=== PATIENT | male | born 1995 | race Caucasian/White ===

== ENCOUNTER 2022-04-21 10:15 | Emergency (ER) | payer OTHER, SELFPAY ==
--- NOTE | ~2022-04-21 | CT_ITS ---
EXAMINATION: CT FACIAL BONES WITHOUT CONTRAST CLINICAL INFORMATION: Right orbital/nasal pain. COMPARISON: None TECHNIQUE: Contiguous axial CT images of the facial bones were obtained without contrast. Sagittal and coronal reformats were provided and reviewed. This CT examination was performed using dose optimization techniques as appropriate, variously including the following: *Automated exposure control *Adjustment of mA and/or kV according to patient size (this includes techniques or standardized protocols for targeted exams where dose is matched to indication/reason for exam; i.e. extremities or head) *Use of iterative reconstruction technique DLP: 319 mGy-cm FINDINGS: There is no acute maxillofacial fracture. The pterygoid plates are intact. The zygomatic arches are intact. The lamina papyracea are intact. The orbital rims are intact. The paranasal sinuses are well-aerated. No air-fluid levels are seen. There is no significant deviation of the nasal septum. The ostiomeatal complexes are clear. The lamina papyracea are intact. The ethmoid roofs are symmetric. The carotid canals are normally covered by bone. No maxillary periapical disease is seen. The mastoid air cells and visualized middle ear cavities are well-aerated. The orbits are normal. The TMJs are unremarkable. The imaged portions of the brain demonstrate no acute abnormality. CT/CT facial bones wo IV con IMPRESSION: No acute intracranial process or discrete facial bone fracture.
[2022-04-21 10:22] VITALS: BP 110/58; PULSE 94; RESP 20; TEMP 36.5; O2SAT 100; BMI 23.1
--- NOTE | 2022-04-21 11:02 | ED_ITS ---
HPI - General Adult General Chief complaint: General Medical Stated complaint: pain on side of nose Time Seen by Provider: 04/21/22 10:44 Source: patient Mode of arrival: ambulatory Limitations: no limitations History of Present Illness HPI narrative: Patient is a 27-year-old male who presents to the emergency department with referral from urgent care. States he needed to come to the emergency department to have a CT scan obtained of his face. On 04/10/2022 while at work at [employer], he states that a machine he was working on which Bean labels became jammed. He attempted to remove the labels, when a metal lurdes with a belt came off the machine and subsequently struck him to the right side of the face. He sustained a laceration from this. He presented to urgent care that day for evaluation, there is no initial imaging obtained. He states since then he has been having dried secretions to the inside of the right nare, he has been picking at this and removing the scab/drainage daily. Yesterday he had a brief episode of epistaxis from the right nares, which stopped with pressure. Over the past 2 days he has been having increasing pain over the right maxillary sinus and throughout the right orbit and tenderness upon palpation. Denies any fevers, chills, dizziness, headache, lightheadedness. Denies any loss of consciousness with initial injury. Related Data Previous Rx's Medication Instructions Recorded doxycycline hyclate 100 mg capsule 100 mg PO BID #14 caps 04/21/22 Allergies Allergy/AdvReac Type Severity Reaction Status Date / Time Penicillins [PENICILLINS] Allergy Unknown HIVES Unverified 12/10/19 16:18 Review of Systems Review of Systems: HEENT: As noted in HPI FOR[facility]LY [facility] Past Medical History Attestation statement: The following information was validated with the patient. Social History Social History Advance Directives: No Advance Directives Information Provided: No Physical Exam ED Vital Signs: Vital Signs - 24 hr 04/21/22 10:22 Temperature 97.7 F Pulse Rate 94 Respiratory Rate 20 Blood Pressure 110/58 L Pulse Oximetry 100 Oxygen Delivery Method Room Air BMI result Body Mass Index 23.1 Appearance: Alert.?Oriented to person, place and time. No acute distress.?Normal affect. Eyes: Pupils equal, round and reactive to light.? EOMI. No nystagmus. ENT: Pharynx normal.??Right maxillary sinus tenderness upon palpation. Mild tenderness upon palpation of the inferior right orbit, palpable step-offs or deformities. Dried secretions noted inside the right nares, no septal hematoma noted. Neck: Normal inspection.? Neck supple.?? CVS: Heart sounds normal. Normal heart rate and rhythm.? Pulses normal.?? Respiratory: No respiratory distress.? Lung sounds clear to auscultation bilaterally?? Abdomen: Soft and non-tender. Skin: Skin warm and dry.? Normal skin color.? ? Extremities: No lower extremity edema.? Neuro: Moves all extremities spontaneously. Sensation intact bilaterally. CN II- XII intact. No focal neuro deficits. Ambulates with normal steady gait. Course Reevaluation(s) Reevaluation #1: CT reveals no maxillofacial fracture. Paranasal sinuses are well aerated, no air-fluid levels are seen, no maxillary periapical disease is seen. Reviewed these findings with patient. At this time patient to be discharged, will provide prescription for doxycycline for treatment of clinical sinusitis at this time. Discussed worrisome signs and symptoms would warrant re-evaluation in the emergency department. All questions answered. Patient stable for discharge at this time. Time: 12:34 Medical Decision Making Medical Decision Making MDM Narrative: Patient is a 27-year-old male presents emergency department for evaluation of pain to the right side asked after injury 10 days ago, referred from urgent care being advised that he needed a CT scan. At the time of examination he is overall well-appearing. Vital signs are within normal limits. Examination not consistent with septal hematoma. Right maxillary sinus tenderness present. Injury was non penetrating to the eye, no pain to the eye, no vision changes, at this time not consistent with globe rupture, hyphema, retro-orbital hemorrhage. Will obtain CT of the facial bones in sinus. Differential Diagnosis Differential Diagnoses: The differential diagnosis associated with the presentation includes (As noted above) Independent Interpretation I performed an independent interpretation of an: CT Scan Radiology Impression Discussion of test interpretation with radiology: I have reviewed the radiologist's reading. Radiologist Impression: CT/CT facial bones wo IV con IMPRESSION: No acute intracranial process or discrete facial bone fracture. Prescription Management I considered prescription management with: Antibiotic Discharge Plan Discharge Clinical Impression: Acute maxillary sinusitis Patient Disposition: Home, Self-Care Instructions: Sinusitis (ED) Additional Instructions: Your CT scan today was normal Please take the entire course of antibiotics as prescribed. You can take ibuprofen 200 mg, 3 tablets (600mg) every 6-8 hours as needed for pain, in addition to Tylenol 500 mg, 2 tablets (1,000mg) every 4-6 hours as needed for pain, but not to exceed 3 doses daily (3,000mg).? Prescriptions: New doxycycline hyclate 100 mg capsule 100 mg PO BID Qty: 14 0RF Referrals: Physician,None [Primary Care Provider] -
== END 2022-04-21 12:57 | disposition home or self-care (01) ==
PROVIDERS: Emergency Provider Emergency Medicine
DX: Z04.2 Encounter for examination and observation following work accident (principal); J01.00 Acute maxillary sinusitis, unspecified
CPT/HCPCS: 70486; 99283; 99284